=== PATIENT | female | born 1975 | race Two or more races ===

== ENCOUNTER 2023-02-13 03:50 | Emergency (ER) | payer MEDICAID, OTHER ==
[~2023-02-13] VITALS: Ht 167.6 cm; Wt 100.6 kg
[2023-02-13 04:53] LABS: Basophils # (auto) 0.1 10 ^3/uL (0-0.2); Basophils % (auto) 0.8 % (0.0-2.0); Eosinophils # (auto) 0.2 10 ^3/uL (0-0.8); Hematocrit 38.1 % (36.0-46.0); Hemoglobin 12.7 g/dL (12.2-16.2); Lymphocytes # (auto) 1.8 10 ^3/uL (0.4-5.4); Lymphocytes % (auto) 23.7 % (10.0-50.0); Mean Corpuscular Hemoglobin 28.1 pg (28.0-32.0); Mean Corpuscular Hgb Conc. 33.4 g/dL (32.0-36.0); Mean Corpuscular Volume 84.3 fL (80.0-100.0); Monocytes # (auto) 0.4 10 ^3/uL (0-1.3); Neutrophils # (auto) 5.1 10 ^3/uL (1.6-8.6); Neutrophils % (auto) 68.5 % (37.0-80.0); Red Blood Cells 4.52 10^6/uL (4.0-5.20); Red Cell Distribution Width 14.5 % (11.8-14.3); White Blood Cell 7.5 10^3/uL (4.4-10.8)
[2023-02-13 05:09] LABS: Urine Bacteria FEW /hpf (None Seen); Urine Blood Negative /uL (Negative); Urine Mucus FEW (None Seen); Urine Specific Gravity 1.019 (1.001-1.035); Urine WBC 56 /hpf (0 - 5)
[2023-02-13 05:11] LABS: Albumin 3.5 g/dL (3.4-5.0); Calcium 8.8 mg/dL (8.5-10.1); Potassium 3.4 mmol/L (3.5-5.1)
[2023-02-13 05:14] LABS: BUN/Creatinine Ratio 21.8 (10.0-20.0); Bilirubin, Total 0.2 mg/dL (0.2-1.0); Total Protein 8.4 g/dL (6.4-8.2)
[2023-02-13 06:27] VITALS: BP 123/52
[2023-02-13] MEDS ORDERED: KETOROLAC TROMETH 60MG/2ML VIAL IM ONE (06:30)
[2023-02-13] MEDS ORDERED: cefTRIAXone SOD 1,000 MG VL IM ONE (06:30)
[2023-02-13] MEDS ORDERED: [UNRECOGNIZED DRUG - CODE] PO (06:53)
[2023-02-13] MEDS ORDERED: IBUP-1455 PO (06:53)
[2023-02-13] MEDS ORDERED: NITR-87 PO (06:53)
== END 2023-02-13 07:02 | disposition home or self-care (01) ==
LOC: ER 03:50
DX: N39.0 Urinary tract infection, site not specified (principal)
CPT/HCPCS: 36415; 80053; 81001; 85025; 96372; 99284; J0696; J1885

== ENCOUNTER 2023-05-24 14:13 | Emergency (ER) | payer MEDICAID, OTHER ==
[~2023-05-24] VITALS: Ht 167.6 cm; Wt 100.1 kg
[~2023-05-24 14:13] MED LIST: IBUP-1455 PO; NITR-87 PO; [UNRECOGNIZED DRUG - CODE] PO
[2023-05-24] MEDS ORDERED: SODIUM CHLORIDE 0.9% 1,000 ML IV ONE (14:30)
[2023-05-24 14:39] LABS: Basophils # (auto) 0 10 ^3/uL (0-0.2); Basophils % (auto) 0.4 % (0.0-2.0); Eosinophils # (auto) 0.1 10 ^3/uL (0-0.8); Eosinophils % (auto) 0.9 % (0.0-7.0); Hematocrit 39.9 % (36.0-46.0); Hemoglobin 13.1 g/dL (12.2-16.2); Lymphocytes # (auto) 2.4 10 ^3/uL (0.4-5.4); Lymphocytes % (auto) 23.9 % (10.0-50.0); Mean Corpuscular Hemoglobin 27.7 pg (28.0-32.0); Mean Corpuscular Hgb Conc. 32.7 g/dL (32.0-36.0); Mean Corpuscular Volume 84.5 fL (80.0-100.0); Monocytes # (auto) 0.6 10 ^3/uL (0-1.3); Monocytes % (auto) 5.5 % (0.0-12.0); Neutrophils # (auto) 6.9 10 ^3/uL (1.6-8.6); Neutrophils % (auto) 69.3 % (37.0-80.0); Red Blood Cells 4.72 10^6/uL (4.0-5.20); Red Cell Distribution Width 15.2 % (11.8-14.3)
[2023-05-24 15:04] LABS: Alanine Aminotransferase 36 U/L (7-40); Albumin 4.3 g/dL (3.2-4.8); Alkaline Phosphatase 83 U/L (46-116); Anion Gap 4.9 (5-15); Aspartate Aminotransferase 18 U/L (13-40); BUN/Creatinine Ratio 24.1 (10.0-20.0); Bilirubin, Total 0.4 mg/dL (0.2-1.0); Blood Urea Nitrogen 14 mg/dL (9-23); Carbon Dioxide 30.1 mmol/L (20-30); Chloride 103 mmol/L (98-107); Glucose 116 mg/dL (74-106); Potassium 3.7 mmol/L (3.5-5.1); Sodium 138 mmol/L (136-145); Total Protein 7.5 g/dL (5.7-8.2)
[2023-05-24 15:32] LABS: Urine Bacteria MOD /hpf (None Seen); Urine Blood 1+ /uL (Negative); Urine Clarity HAZY (Clear); Urine Color Yellow (Yellow); Urine Mucus FEW (None Seen); Urine Protein, UAD TRACE (Negative); Urine Specific Gravity 1.021 (1.001-1.035); Urine Urobilinogen Normal (Negative); Urine WBC 31 /hpf (0 - 5)
[2023-05-24] MEDS ORDERED: NITR-87 PO (15:41)
[2023-05-24] MEDS ORDERED: cefTRIAXone SOD 1,000 MG VL IM ONE (15:45)
[2023-05-24] MEDS ORDERED: cefTRIAXone 1GM/50ML D5W 50 ML IV ONE ×2 (16:00→16:03)
[2023-05-24 16:06] VITALS: BP 111/59; PULSE 71; RESP 18; TEMP 98.5; O2SAT 100
== END 2023-05-24 16:50 | disposition home or self-care (01) ==
LOC: ER 14:13
DX: N39.0 Urinary tract infection, site not specified (principal)
CPT/HCPCS: 36415; 71045; 74176; 80053; 81001; 84484; 85025; 96361; 96365; 99285; J0696; J7030

== ENCOUNTER → 2023-08-23 23:56 | Emergency (ER) | payer MEDICAID, OTHER ==
[~2023-08-23] VITALS: Ht 167.6 cm; Wt 100.0 kg
[2023-08-24 00:10] VITALS: BP 112/65; PULSE 77; RESP 18; O2SAT 96
== END | disposition left against medical advice (07) ==
LOC: ER 23:56
DX: M25.512 Pain in left shoulder (principal); Z53.21 Procedure and treatment not carried out due to patient leaving prior to being seen by health care provider